=== PATIENT | female | born 1945 | race Caucasian/White ===

== ENCOUNTER → 2017-10-28 | Outpatient (CLI) | payer OTHER | LOC: BRMIMAGING 13:11 | PROVIDERS: ATTEND Family Medicine | DX: Z12.31 Encounter for screening mammogram for malignant neoplasm of breast (principal); Z13.820 Encounter for screening for osteoporosis; M85.89 Other specified disorders of bone density and structure, multiple sites; E07.9 Disorder of thyroid, unspecified; Z78.0 Asymptomatic menopausal state ==

== ENCOUNTER → 2017-11-04 | Outpatient (CLI) | payer OTHER | LOC: BRMIMAGING 09:34 | PROVIDERS: ATTEND Family Medicine | DX: R92.8 Other abnormal and inconclusive findings on diagnostic imaging of breast (principal) ==